=== PATIENT | male | born 1975 | race Two or more races ===

== ENCOUNTER 2017-09-11 10:30 | Emergency (ER) | payer MEDICAID, OTHER ==
[~2017-09-11] VITALS: Ht 172.7 cm; Wt 90.7 kg
[2017-09-11 10:39] VITALS: BP 141/87
== END 2017-09-11 13:15 | disposition left against medical advice (07) ==
LOC: ER 10:40
DX: S01.511D Laceration without foreign body of lip, subsequent encounter (principal); Z53.21 Procedure and treatment not carried out due to patient leaving prior to being seen by health care provider; X58.XXXD Exposure to other specified factors, subsequent encounter